=== PATIENT | female | born 1955 | race Caucasian/White ===

== ENCOUNTER 2017-03-12 20:23 | Inpatient (IN) | payer OTHER ==
[~2017-03-12] VITALS: Ht 160 cm; Wt 113.4 kg
[~2017-03-12 20:23] MED LIST: ALTACE10 MG PO; MOTRIN800 MG PO; NORVASC5 MG PO; ORPH100T PO; SYNTHROID200 MCG PO
[2017-03-12] MEDS ORDERED: TESSALON PERLE100 M1 PO (20:44)
[2017-03-12] MEDS ORDERED: VIT C-ROSE HIP500 MG (20:44)
[2017-03-12] MEDS ORDERED: TUSNEL C SYRUP473 ML PO (20:44)
[2017-03-12] MEDS ORDERED: AMOX1TAB5 (20:44)
[2017-03-12] MEDS ORDERED: SYNTHROID175 MCG (20:45)
[2017-03-12] MEDS ORDERED: ARIPIPRAZOLE10 MG (20:45)
[2017-03-12] MEDS ORDERED: AVAPRO150 MG (20:46)
[2017-03-12] MEDS ORDERED: TENORMIN25 MG (20:46)
[2017-03-12] MEDS ORDERED: VITAMIN E & D B52 ML (20:47)
== END 2017-03-19 15:40 | disposition home or self-care (01) | DRG 202 ==
LOC: ER 20:23 → MEDI 03-13 08:36
PROC: 3E0F7GC Introduction of Other Therapeutic Substance into Respiratory Tract, Via Natural or Artificial Opening (ICD-10-PCS; principal; 2017-03-13)
PROC: 4A033R1 Measurement of Arterial Saturation, Peripheral, Percutaneous Approach (ICD-10-PCS; 2017-03-13)
DX: J45.42 Moderate persistent asthma with status asthmaticus (principal); J98.11 Atelectasis; J20.9 Acute bronchitis, unspecified; J11.1 Influenza due to unidentified influenza virus with other respiratory manifestations; R09.02 Hypoxemia; E11.65 Type 2 diabetes mellitus with hyperglycemia; E66.8 Other obesity; I10 Essential (primary) hypertension; E89.0 Postprocedural hypothyroidism; G47.33 Obstructive sleep apnea (adult) (pediatric)

== ENCOUNTER 2017-09-07 17:47 | Emergency (ER) | payer OTHER ==
[~2017-09-07] VITALS: Ht 160 cm; Wt 108.9 kg
[~2017-09-07 17:47] MED LIST changes: +AMOX1TAB5; +ARIPIPRAZOLE10 MG; +AVAPRO150 MG; +SYNTHROID175 MCG; +TENORMIN25 MG; +TESSALON PERLE100 M1 PO; +TUSNEL C SYRUP473 ML PO; +VIT C-ROSE HIP500 MG; +VITAMIN E & D B52 ML
== END 2017-09-07 22:06 | disposition home or self-care (01) ==
LOC: ER 17:47
DX: K52.89 Other specified noninfective gastroenteritis and colitis (principal)